=== PATIENT | female | born 2000 | race Caucasian/White ===

== ENCOUNTER 2021-06-18 08:29 | Emergency (ER) | payer BC ==
[~2021-06-18] VITALS: Ht 180 cm; Wt 154.0 kg
[~2021-06-18 08:29] MED LIST: AMOX500T2 PO; CODE118S4 PO; METH4TAB PO
--- NOTE | 2021-06-18 08:41 | ED Abdominal Pain ---
General Stated Complaint: ABD/BACK PAIN Source of Information: Patient Exam Limitations: No Limitations History of Present Illness Date Seen by Provider: Jun 18, 2021 Time Seen by Provider: 08:35 Initial Comments 21-year-old female with no significant past medical history coming in due to right flank and right lower abdominal pain. Started abruptly at 630 this morning and woke her up. Very sharp, constant, and associated with nausea and nonbloody nonbilious vomiting. Nothing seems to make the pain better or worse. Denies any diarrhea, fever, dysuria, hematuria, weakness, numbness. She is on control as the only medication and her LMP was less than a month ago. Denies any vaginal discharge. Allergies and Home Medications Allergies Uncoded Allergies: PENICILLIN (Allergy, Intermediate, hives, 09/03/16) Patient Home Medication List Home Medication List Reviewed: Yes Ondansetron (Ondansetron Odt) 4 Mg Tab.rapdis, 4 MG PO Q6H PRN for NAUSEA/VOMITING Prescribed by: MIKI VILLALOBOS on 06/18/21 1023 Oxycodone HCl (Oxycodone HCl) 5 Mg Capsule, 5 MG PO Q6H Prescribed by: MIKI VILLALOBOS on 06/18/21 1024 Sulfamethoxazole/Trimethoprim (Bactrim Ds Tablet) 1 Each Tablet, 1 EACH PO BID Prescribed by: MIKI VILLALOBOS on 06/18/21 1023 Tamsulosin HCl (Flomax) 0.4 Mg Cap, 0.4 MG PO DAILY Prescribed by: MIKI VILLALOBOS on 06/18/21 1023 Review of Systems Review of Systems Constitutional: No chills, No fever EENTM: No Blurred Vision Respiratory: Denies Cough, Denies Shortness of Air Cardiovascular: Denies Chest Pain Gastrointestinal: Abdominal Pain; Denies Diarrhea; Nausea, Vomiting Genitourinary: Denies Burning, Denies Frequency; Flank Pain Musculoskeletal: No joint pain Skin: No rash Psychiatric/Neurological: No Symptoms Reported Endocrine: No Symptoms Reported Hematologic/Lymphatic: No Symptoms Reported All Other Systems Reviewed Negative Unless Noted: Yes Past Bkpdwph-Voiyte-Ajqadt Hx Patient Social History Tobacco Use?: No Substance use?: No Immunizations Up To Date Tetanus Booster (TDap): Less than 5yrs PED Vaccines UTD: Yes Seasonal Allergies Seasonal Allergies: No Past Medical History Adenoidectomy, Orthopedic, Tonsillectomy Reproductive Disorders: No Tonsilitis Adverse Reaction/Blood Tranf: No Physical Exam Vital Signs Vital Signs - First Documented 06/18/21 08:30 Temp 36.6 Pulse 88 Resp 20 B/P (MAP) 157/105 (122) Pulse Ox 98 Capillary Refill : Height/Weight/BMI Height: 5'11" Weight: 250lbs. oz. [id number]; 34.86 BMI Method:Stated General Appearance: WD/WN, no apparent distress HEENT: PERRL/EOMI, normal ENT inspection, pharynx normal Neck: non-tender, full range of motion, supple Respiratory: chest non-tender, lungs clear, normal breath sounds, no respiratory distress, no accessory muscle use Cardiovascular: regular rate, rhythm, no edema Gastrointestinal: normal bowel sounds, soft; No distended, No guarding, No rebound; tenderness (RLQ) Extremities: normal range of motion, non-tender, normal inspection, no pedal edema, no calf tenderness, normal capillary refill Back: normal inspection, no vertebral tenderness, CVA tenderness (R); No CVA tenderness (L) Neurologic/Psychiatric: no motor/sensory deficits, alert, normal mood/affect Skin: normal color, warm/dry Lymphatic: no adenopathy Procedures/Interventions Suture Size: 4-0 Progress/Results/Core Measures Results/Orders Lab Results Laboratory Tests Test 06/18/21 08:42 06/18/21 08:51 Range/Units White Blood Count 12.0 H 4.3-11.0 10^3/uL Red Blood Count 4.87 3.80-5.11 10^6/uL Hemoglobin 11.9 11.5-16.0 g/dL Hematocrit 38 35-52 % Mean Corpuscular Volume 78 L 80-99 fL Mean Corpuscular Hemoglobin 24 L 25-34 pg Mean Corpuscular Hemoglobin Concent 31 L 32-36 g/dL Red Cell Distribution Width 15.0 H 10.0-14.5 % Platelet Count 384 130-400 10^3/uL Mean Platelet Volume 10.2 9.0-12.2 fL Immature Granulocyte % (Auto) 1 % Neutrophils (%) (Auto) 52 42-75 % Lymphocytes (%) (Auto) 35 12-44 % Monocytes (%) (Auto) 9 0-12 % Eosinophils (%) (Auto) 3 0-10 % Basophils (%) (Auto) 1 0-10 % Neutrophils # (Auto) 6.2 1.8-7.8 10^3/uL Lymphocytes # (Auto) 4.2 H 1.0-4.0 10^3/uL Monocytes # (Auto) 1.0 0.0-1.0 10^3/uL Eosinophils # (Auto) 0.4 H 0.0-0.3 10^3/uL Basophils # (Auto) 0.1 0.0-0.1 10^3/uL Immature Granulocyte # (Auto) 0.1 0.0-0.1 10^3/uL Sodium Level 139 135-145 MMOL/L Potassium Level 3.1 L 3.6-5.0 MMOL/L Chloride Level 108 H 98-107 MMOL/L Carbon Dioxide Level 20 L 21-32 MMOL/L Anion Gap 11 5-14 MMOL/L Blood Urea Nitrogen 13 7-18 MG/DL Creatinine 0.75 0.60-1.30 MG/DL Estimat Glomerular Filtration Rate 98 BUN/Creatinine Ratio 17 Glucose Level 120 H 70-105 MG/DL Calcium Level 8.9 8.5-10.1 MG/DL Corrected Calcium 9.0 8.5-10.1 MG/DL Total Bilirubin 0.6 0.1-1.0 MG/DL Aspartate Amino Transf (AST/SGOT) 19 5-34 U/L Alanine Aminotransferase (ALT/SGPT) 20 0-55 U/L Alkaline Phosphatase 83 40-136 U/L Total Protein 6.9 6.4-8.2 GM/DL Albumin 3.9 3.2-4.5 GM/DL Lipase 11 8-78 U/L Urine Color YELLOW Urine Clarity CLOUDY Urine pH 6.5 5-9 Urine Specific [place] 1.025 H 1.016-1.022 Urine Protein 1+ H NEGATIVE Urine Glucose (UA) NEGATIVE NEGATIVE Urine Ketones NEGATIVE NEGATIVE Urine Nitrite NEGATIVE NEGATIVE Urine Bilirubin NEGATIVE NEGATIVE Urine Urobilinogen 0.2 < = 1.0 MG/DL Urine Leukocyte Esterase 1+ H NEGATIVE Urine RBC (Auto) 1+ H NEGATIVE Urine RBC 2-5 H /HPF Urine WBC 25-50 H /HPF Urine Squamous Epithelial Cells 10-25 H /HPF Urine Crystals NONE /LPF Urine Bacteria TRACE /HPF Urine Casts NONE /LPF Urine Mucus NEGATIVE /LPF Urine Culture Indicated YES My Orders Orders - MIKI VILLALOBOS MD Ketorolac Injection (Toradol Injection) (06/18/21 08:45) Urine Bedside (06/18/21 08:41) Cbc With Automated Diff (06/18/21 08:41) Comprehensive Metabolic Panel (06/18/21 08:41) Ct Abd/Pelv W (Appendicitis) (06/18/21 08:41) Ed Iv/Invasive Line Start (06/18/21 08:41) Lipase (06/18/21 08:41) Ua Culture If Indicated (06/18/21 08:41) Morphine Injection (Morphine Injection (06/18/21 08:45) Ondansetron Injection (Zofran Injectio (06/18/21 08:45) Morphine Injection (Morphine Injection (06/18/21 08:49) Iohexol Injection (Omnipaque 350 Mg/Ml 1 (06/18/21 09:15) Received Contrast (Hold Metformin- Contr (06/18/21 09:15) Sodium Chloride Flush (Catheter Flush Sy (06/18/21 09:15) Ns (Ivpb) (Sodium Chloride 0.9% Ivpb Bag (06/18/21 09:15) Urine Culture (06/18/21 08:51) Abdomen/Kub 1[place] (06/18/21 10:11) Medications Given in ED Current Medications Medications Dose Ordered Sig/Mark Route Start Time Stop Time Status Last Admin Dose Admin Iohexol 100 ml ONCE ONCE IV 06/18/21 09:15 06/18/21 09:38 DC 06/18/21 09:38 100 ML Ketorolac Tromethamine 15 mg ONCE ONCE IVP 06/18/21 08:45 06/18/21 08:46 DC 06/18/21 08:54 15 MG Morphine Sulfate 10 mg STK-MED ONCE .ROUTE 06/18/21 08:49 06/18/21 08:53 DC 06/18/21 08:54 4 MG Ondansetron HCl 4 mg ONCE ONCE IVP 06/18/21 08:45 06/18/21 08:46 DC 06/18/21 08:54 4 MG Sodium Chloride 10 ml NEEDED PRN IV 06/18/21 09:15 06/18/21 09:39 10 ML Sodium Chloride 100 ml ONCE ONCE IV 06/18/21 09:15 06/18/21 09:38 DC 06/18/21 09:39 80 ML Vital Signs/I&O 06/18/21 08:30 Temp 36.6 Pulse 88 Resp 20 B/P (MAP) 157/105 (122) Pulse Ox 98 Progress Progress Note : Progress Note 21-year-old female with above history coming in with right lower quadrant and right flank pain. ABCs were intact and vitals were stable on presentation. Physical exam significant for right flank and right lower quadrant tenderness which she says is more in the right lower quadrant. No peritoneal signs. An IV was placed and she was given morphine for pain and Zofran for nausea. Dif ferential includes appendicitis versus ureterolithiasis versus pyelonephritis versus less likely cholecystitis versus some other etiology. CT imaging will be ordered to further evaluate for the cause of her pain. Labs significant for mild leukocytosis, urinalysis with white blood cells, reds, but significant squamous cells. I will send an antibiotic just in case. CT scan concerning for small ureteral lithiasis with mild hydronephrosis. This is the most likely etiology of her pain as it fits her clinical symptoms. She does as well have a left-sided ovarian cyst that is 4.6 cm. She is not tender on repeat abdominal exam in her left lower quadrant and I do not believe this is the cause of her symptoms. I did discuss this with her and recommend she follo w-up with her pipe racker to get a repeat ultrasound. I did tell her that the cyst to make it increasingly likely that her ovaries can twist and become an emergency. I told her if she has any pain in her lower abdomen she needs to come to the ER. I gave her information on how to follow-up with a urologist, but otherwise we will try to allow her to do a trial of passage of the stone. She was then discharged home in stable condition with strict return precautions. Diagnostic Imaging Diagonstic Imaging: CT Plain Films/CT/US/NM/MRI: abdomen, pelvis Comments [facility] [place], [place] NAME: ASHLEYFRANKIRVING [facility] REC#: [id number] PT STATUS: REG ER : 2000 PHYSICIAN: MIKI VILLALOBOS MD ADMIT DATE: 06/18/21/ER Draft Date of Exam:06/18/21 CT ABD/PELV W (APPENDICITIS) INDICATION: Right lower quadrant pain. EXAMINATION: CT abdomen and pelvis with contrast on 06/18/2021. FINDINGS: The lung bases are clear. The liver, spleen, gallbladder, pancreas, and adrenal glands are unremarkable. The left kidney is unremarkable. There is mild prominence of the right kidney with mild right hydroureteronephrosis. There is a punctate stone at the right UVJ. There is no ascites or free air. There are cystic changes bilaterally within the ovaries. A larger cystic lesion exophytic abutting the left ovary measures 4.6 cm emanating off of the right lateral border of the left ovary just overlying the superior border of the bladder and better characterized sonographically if clinically warranted; otherwise, a 2-3 month followup sonogram is recommended to assure resolution. The appendix is normal. The remaining loops of bowel are unremarkable. There is no acute osseous abnormality. IMPRESSION: 1. Punctate stone at the right UVJ with secondary mild right hydroureteronephrosis. 2. Cystic lesions in the pelvis, the largest of which appears to be exophytic off of the left ovary. See above discussion and recommendations. Dictated on workstation # [id number] Dict: 06/18/21 0945 Trans: 06/18/21 0957 [id number] Interpreted by: GIDEON MALIN MD Electronically signed by: Departure Impression Primary Impression: Ureterolithiasis Additional Impressions: Hydronephrosis Qualified Codes: N13.2 - Hydronephrosis with renal and ureteral calculous obstruction Ovarian cyst Qualified Codes: N83.202 - Unspecified ovarian cyst, left side Disposition: 01 HOME, SELF-CARE Condition: Stable Departure-Patient Inst. Decision time for Depature: 10:20 Referrals: ANABELL RDZ ELIAS A MD Patient Instructions: Ovarian Cyst ED, Kidney Stones (DC) Add. Discharge Instructions: You were seen in the emergency department for right flank and right lower quadrant abdominal pain. You have a kidney stone that is blocking your urine on the right side. You have any fever then you definitely we need to come back to the ER. I sent a prescription for an antibiotic, pain meds, nausea meds, and a medicine to hopefully help the stone pass easier. Please call Dr. Carpio's office tomorrow if not better. Also please follow-up with a pipe racker here regarding the cyst in your ovary as these can get larger and cause problems. He will need a repeat ultrasound within the next couple months at the minimum. Scripts Oxycodone HCl (Oxycodone HCl) 5 Mg Tablet 5 MG PO Q6H PRN for PAIN-MODERATE (5-7) for 3 Days, #12 TAB 0 Refills Prov: MIKI VILLALOBOS MD 06/18/21 Sulfamethoxazole/Trimethoprim (Bactrim Ds Tablet) 1 Each Tablet 1 EACH PO BID for 5 Days, #10 TAB Prov: MIKI VILLALOBOS MD 06/18/21 Tamsulosin HCl (Flomax) 0.4 Mg Cap 0.4 MG PO DAILY for 14 Days, #14 CAP Prov: MIKI VILLALOBOS MD 06/18/21 Ondansetron (Ondansetron Odt) 4 Mg Tab.rapdis 4 MG PO Q6H PRN for NAUSEA/VOMITING for 5 Days, #20 TAB 0 Refills Prov: MIKI VILLALOBOS MD 06/18/21 Work/School Note: Work Release Form Date Seen in the Emergency Department: Jun 18, 2021 Return to Work: Jun 21, 2021 Restrictions: No Restrictions MIKI VILLALOBOS MD Jun 18, 2021 08:41
[2021-06-18] MEDS ORDERED: KETOROLAC 30 MG/ML VIAL IVP ONE (08:45)
[2021-06-18] MEDS ORDERED: ONDANSETRON 4 MG/2 ML (SDV) Z0FRAN IVP ONE (08:45)
[2021-06-18] MEDS ORDERED: morphine INJ 4 MG/ML 1 ML (VIAL/SYRINGE) IVP ONE (08:45)
[2021-06-18] MEDS ORDERED: morphine INJ 10 MG/ML 1ML (SYR OR VIAL) ONE (08:49)
[2021-06-18 08:54] LABS: BASOPHILS # (AUTO) 0.1 10^3/uL (0.0-0.1); BASOPHILS % (AUTO) 1 % (0-10); EOSINOPHILS # (AUTO) 0.4 10^3/uL (0.0-0.3); EOSINOPHILS % (AUTO) 3 % (0-10); HEMATOCRIT 38 % (35-52); HEMOGLOBIN 11.9 g/dL (11.5-16.0); LYMPHOCYTES # (AUTO) 4.2 10^3/uL (1.0-4.0); LYMPHOCYTES % (AUTO) 35 % (12-44); MEAN CORPUSCULAR HEMOGLOBIN 24 pg (25-34); MEAN CORPUSCULAR HGB CONC 31 g/dL (32-36); MEAN CORPUSCULAR VOLUME 78 fL (80-99); MEAN PLATELET VOLUME 10.2 fL (9.0-12.2); MONOCYTES % (AUTO) 9 % (0-12); NEUTROPHILS # (AUTO) 6.2 10^3/uL (1.8-7.8); NEUTROPHILS % (AUTO) 52 % (42-75); PLATELET COUNT 384 10^3/uL (130-400)
[2021-06-18 08:58] LABS: BILIRUBIN,URINE NEGATIVE (NEGATIVE); CLARITY,URINE CLOUDY; COLOR,URINE YELLOW; GLUCOSE, URINE (UA) NEGATIVE (NEGATIVE); KETONES,URINE NEGATIVE (NEGATIVE); LEUKOCYTE ESTERASE ,URINE 1+ (NEGATIVE); NITRITE,URINE NEGATIVE (NEGATIVE); PH,URINE 6.5 (5-9); PROTEIN,URINE 1+ (NEGATIVE)
[2021-06-18 09:04] LABS: ALBUMIN 3.9 GM/DL (3.2-4.5); POTASSIUM 3.1 MMOL/L (3.6-5.0)
[2021-06-18 09:05] LABS: CALCIUM 8.9 MG/DL (8.5-10.1)
[2021-06-18 09:06] LABS: TOTAL PROTEIN 6.9 GM/DL (6.4-8.2)
[2021-06-18 09:08] LABS: BILIRUBIN,TOTAL 0.6 MG/DL (0.1-1.0)
[2021-06-18 09:09] LABS: BACTERIA,URINE TRACE /HPF; WBC,URINE 25-50 /HPF
[2021-06-18 09:10] LABS: CREATININE SERUM 0.75 MG/DL (0.60-1.30)
[2021-06-18] MEDS ORDERED: IOHEXOL 350 MG/ML 100 ML (OMNIPAQUE 350) VIAL IV ONE (09:15)
[2021-06-18] MEDS ORDERED: HOLD METFORMIN - RECEIVED CONTRAST 20 ML VIAL IV SCH (09:15)
[2021-06-18] MEDS ORDERED: NS 100 ML (IVPB) BAG IV ONE (09:15)
[2021-06-18] MEDS ORDERED: CATHETER FLUSH 10 ML SYR IV PRN (09:15)
--- NOTE | 2021-06-18 09:57 | Diagnostic Imaging Report ---
INDICATION: Right lower quadrant pain. EXAMINATION: CT abdomen and pelvis with contrast on 06/18/2021. FINDINGS: The lung bases are clear. The liver, spleen, gallbladder, pancreas, and adrenal glands are unremarkable. The left kidney is unremarkable. There is mild prominence of the right kidney with mild right hydroureteronephrosis. There is a punctate stone at the right UVJ. There is no ascites or free air. There are cystic changes bilaterally within the ovaries. A larger cystic lesion exophytic abutting the left ovary measures 4.6 cm emanating off of the right lateral border of the left ovary just overlying the superior border of the bladder and better characterized sonographically if clinically warranted; otherwise, a 2-3 month followup sonogram is recommended to assure resolution. The appendix is normal. The remaining loops of bowel are unremarkable. There is no acute osseous abnormality. IMPRESSION: 1. Punctate stone at the right UVJ with secondary mild right hydroureteronephrosis. 2. Cystic lesions in the pelvis, the largest of which appears to be exophytic off of the left ovary. See above discussion and recommendations. Dictated by: Dictated on workstation # [id number]
[2021-06-18] MEDS ORDERED: OXYC5CAP18 PO (10:23)
[2021-06-18] MEDS ORDERED: SULF1TAB38 PO (10:23)
[2021-06-18] MEDS ORDERED: ONDA4TAB11 PO (10:23)
[2021-06-18] MEDS ORDERED: TMSL.4C PO (10:23)
[2021-06-18] MEDS ORDERED: OXYC5TAB PO (10:47)
[2021-06-18 10:59] VITALS: BP 157/117
--- NOTE | 2021-06-18 11:08 | Diagnostic Imaging Report ---
INDICATION: Abdominal pain, obstructive uropathy. TECHNIQUE: Two supine views of the abdomen at 10:40 AM. CORRELATION STUDY: CT imaging 06/18/2021. FINDINGS: Asymmetric right-sided hydroureteronephrosis is present. The right ureter is dilated to the level of the urinary bladder corresponding to the known obstructing distal right ureteral stone. Left renal collecting system is decompressed. Bowel gas pattern is nonobstructed. IMPRESSION: Asymmetric right-sided mild hydroureteronephrosis. This corresponds to CT findings with the known small distal right ureteral stone. Dictated by: Dictated on workstation # [id number]
== END 2021-06-18 10:59 | disposition home or self-care (01) ==
LOC: EDUNIT# 08:29 → ER 08:32
DX: N13.2 Hydronephrosis with renal and ureteral calculous obstruction (principal); N83.201 Unspecified ovarian cyst, right side
CPT/HCPCS: 36415; 74018; 74177; 80053; 81000; 83690; 84703; 85025; 87088

== ENCOUNTER → 2021-06-27 | Outpatient (CLI) | payer BC ==
[~2021-06-27] MED LIST changes: +ONDA4TAB11 PO; +OXYC5CAP18 PO; +OXYC5TAB PO; +SULF1TAB38 PO; +TMSL.4C PO
--- NOTE | 2021-06-27 12:18 | Diagnostic Imaging Report ---
PROCEDURE: Pelvic comp/transvaginal sonogram. TECHNIQUE: Complete transabdominal and transvaginal pelvic ultrasound was performed. In addition, limited pelvic Doppler was performed. INDICATION: Left ovarian cysts. Correlation is made with CT study from 06/18/2021. Uterus is anteverted measuring 8.6 x 5.1 x 6.9 cm. Endometrium is 9 mm in thickness. Right ovary measures 3.1 x 3.8 x 2.9 cm. Left ovary measures 2.9 x 7.1 x 6.7 cm. Right ovary contains small follicles. Left ovary does contain 2 cystic lesions. The more medial lesion measures 2.3 x 3.5 x 3.1 cm. A more complex appearing lesion measures 4.6 x 4.0 x 4.3 cm. No definite internal vascularity is seen. There is no free fluid. IMPRESSION: Left ovarian cyst, one of which appears to be complex and may be hemorrhagic. Follow-up ultrasound in 6-8 weeks is recommended to confirm stability. Dictated by: Dictated on workstation # [id number]
== END ==
LOC: RAD 10:33
PROVIDERS: ATTEND Family Medicine
DX: N83.202 Unspecified ovarian cyst, left side (principal)
CPT/HCPCS: 76830; 76856

== ENCOUNTER → 2021-08-28 | Outpatient (CLI) | payer BC ==
--- NOTE | 2021-08-28 17:05 | Diagnostic Imaging Report ---
PROCEDURE: Pelvic complete, transabdominal and transvaginal sonogram. Limited pelvic Doppler. TECHNIQUE: Multiple real-time grayscale images were obtained of the pelvis in various projections transabdominally and transvaginally. Limited pelvic duplex images were obtained. HISTORY: Left cystic ovary. COMPARISON: 06/27/2021. FINDINGS: Uterus: The uterus is anteverted and measures 8.2 x 4.5 x 5.6 cm. The myometrium is homogeneous without fibroids. Endometrium: The endometrium is normal in thickness and measures 0.5 cm. There is no fluid within the endometrial cavity. Adnexa: There is a 2.5 cm unilocular, anechoic right ovarian cyst. There is a 5.2 cm unilocular, anechoic left ovarian cyst. The right ovary measures 5.2 x 3.2 x 3.1 cm and the left ovary measures 8.7 x 4.6 x 5.5 cm. Duplex images reveal normal vascular flow to both ovaries. Other: There is no free fluid within the pelvis. IMPRESSION: Slightly increased size of a simple appearing left ovarian cyst measuring 5.2 cm. Given the persistence and slight increase in size from 06/27/2021, recommend continued ultrasound follow-up in 8-12 weeks. Dictated by: Dictated on workstation # [id number]
== END ==
LOC: RAD 15:15
PROVIDERS: ATTEND Family Medicine
DX: N83.202 Unspecified ovarian cyst, left side (principal)
CPT/HCPCS: 76830; 76856

== ENCOUNTER → 2021-11-19 | Outpatient (CLI) | payer BC | LOC: LABNPT 06:23 | PROVIDERS: ATTEND Emergency Medicine | DX: Z01.812 Encounter for preprocedural laboratory examination (principal); Z20.822 Contact with and (suspected) exposure to COVID-19 | CPT/HCPCS: 87635 ==

== ENCOUNTER → 2021-11-25 | Outpatient (CLI) | payer BC ==
--- NOTE | 2021-11-25 13:14 | Diagnostic Imaging Report ---
PROCEDURE: US Non-ob pelvis comp/trans. TECHNIQUE: Multiple realtime grayscale images were obtained of the pelvis in various projections endovaginally. Transabdominal imaging was also performed. INDICATION: Ovarian cyst. Comparison with the 08/28/2021 ultrasound. FINDINGS: Uterus measures 7.9 x 4.7 x 5 cm. Endometrial stripe is 5 mm. The right ovary measures 6.9 x 4.8 cm with a 5.3 x 3.7 x 6.9 cm cyst present. The left ovary measures 5.2 x 4 x 4.8 cm. There is a 5 x 4.4 x 5 cm cyst in the left ovary. These do have a simple appearance. There is normal blood flow to the ovaries. There is no free fluid in the pelvis. IMPRESSION: Bilateral ovarian cysts. These appear to be stable since previous examination. Dictated by: Dictated on workstation # [id number]
== END ==
LOC: RAD 10:00
PROVIDERS: ATTEND Obstetrics & Gynecology
DX: N83.292 Other ovarian cyst, left side (principal); N83.291 Other ovarian cyst, right side
CPT/HCPCS: 76830; 76856

== ENCOUNTER → 2023-03-06 | Outpatient (CLI) | payer BC ==
--- NOTE | 2023-03-06 12:05 | Diagnostic Imaging Report ---
EXAMINATION: Lumbar spine radiographs, 3 views. COMPARISON: None. HISTORY: 23-year-old female, low back pain. FINDINGS: There are 5 lumbar-type vertebral bodies. There is no identified compression deformity or fracture. The lumbar disc heights are well preserved. The facet joints are unremarkable. Unremarkable appearance of the sacroiliac joints. IMPRESSION: 1. Unremarkable radiographs of the lumbar spine. Dictated by: Dictated on workstation # [id number]
== END ==
LOC: RAD 11:13
PROVIDERS: ATTEND Family Medicine
DX: M54.50 Low back pain, unspecified (principal)
CPT/HCPCS: 72100